=== PATIENT | female | born 1940 | race African-American/Black ===

== ENCOUNTER 2024-12-06 13:34 | Inpatient (IN) | payer OTHER ==
[2024-12-06 15:27] LABS: MCHC 32.5 g/dl (32.2-35.5); MEAN CELL VOLUME 73.4 fl (79.4-94.8); MEAN PLT VOLUME 10.2 fl (9.4-12.3); RDW 14.1 % (12.5-17.0)
[2024-12-06 15:30] LABS: EPI CELLS 17 /uL (0-25.1); HYALINE CASTS 1 /uL (0-3.1); URINE APPEARANCE CLEAR; URINE BACTERIA 374 /uL (0-1359); URINE BILIRUBIN NEGATIVE (NEGATIVE); URINE COLOR YELLOW; URINE GLUCOSE (UA) NEGATIVE (NEGATIVE); URINE KETONE NEGATIVE (NEGATIVE); URINE LEUK ESTERASE 1+ (NEGATIVE); URINE NITRITE NEGATIVE (NEGATIVE); URINE PROTEIN 1+ (NEGATIVE); URINE UROBILINOGEN 2.0 mg/dL (0.2-1.0); URINE WBC 136 /uL (0-25.8)
[2024-12-06 15:34] LABS: INR 1.19 (0.83-1.09); PROTHROMBIN TIME (PATIENT) 13.0 SEC (9.7-13.0)
[2024-12-06 15:36] LABS: ACTIVATED PTT 26.5 SECONDS (25.2-36.5)
[2024-12-06] MEDS ORDERED: ACETAMINOPHEN INJECTION 100 ML ONE (15:40)
[2024-12-06] MEDS ORDERED: PIPERACILLIN/TAZOB 3.375 GM 3.375 GM/50 ML BAG IVPB ONE (15:40)
[2024-12-06 15:53] LABS: GLUCOSE,RANDOM 102.0 mg/dL (74-106)
[2024-12-06] MEDS: PIPERACILLIN/TAZOB 3.375 GM 3.375 GM in DEXTROSE 5%-WATER - 50 ML IVPB ONE (15:53)
[2024-12-06] MEDS: ACETAMINOPHEN 1000 MG/100 ML BAG IVPB ONE (15:53)
[2024-12-06 15:54] LABS: TOT PROT 6.6 g/dl (6.4-8.2)
[2024-12-06 15:55] LABS: CO2 25.0 mmol/L (21-32)
[2024-12-06 15:56] LABS: ALK PHOS 76.0 U/L (40-150)
[2024-12-06 15:59] LABS: CREATININE 0.48 mg/dL (0.55-1.3); SGOT/AST 32.0 U/L (5-34); SGPT/ALT 21.0 U/L (0-55)
[2024-12-06 16:17] LABS: HIV INTERPRETATION NEGATIVE (NEGATIVE)
[2024-12-06 16:18] LABS: HCV DIAGNOSTIC IN-HOUSE W/RFLX NON-REACTIVE (NONREACTIVE)
[2024-12-06] MEDS ORDERED: VANCOMYCIN 1 GM PREMIX (F) 1 GM/200 ML BAG ONE (16:37)
[2024-12-06] MEDS: VANCOMYCIN 1,000 MG in DEXTROSE 5%-WATER - 250 ML IVPB ONE (16:49)
[2024-12-06 17:59] VITALS: BMI 23.6
[2024-12-06] MEDS: SENNOSIDES 8.6MG TABLET (FP) PO SCH (18:53)
[2024-12-06] MEDS ORDERED: PIPERACILLIN/TAZOB 3.375 GM 3.375 GM in DEXTROSE 5%-WATER - 50 ML IVPB SCH (21:00)
[2024-12-06] MEDS: PIPERACILLIN/TAZOB 3.375 GM 3.375 GM in DEXTROSE 5%-WATER - 50 ML IVPB SCH (21:10)
[2024-12-06] MEDS: HEPARIN NA (PORCINE) 5,000 UNITS/ML 1ML VIAL SQ SCH (21:11)
[2024-12-06] MEDS: CARBIDOPA/LEVODOPA 25/100 TABLET (FP) PO SCH (21:11)
[2024-12-06] MEDS: NYSTATIN POWDER 100,000 UNITS/GM - 15 GM TOPICAL POWDER TP SCH (22:00)
[2024-12-07] MEDS: ACETAMINOPHEN 1000 MG/100 ML BAG IVPB PRN ×2 (00:55→22:58)
[2024-12-07] MEDS: VANCOMYCIN/WATER FOR INJ (PEG) 1,000 MG/200 ML BAG IVPB SCH (04:00)
[2024-12-07 09:37] LABS: MCHC 31.7 g/dl (32.2-35.5); MEAN CELL VOLUME 74.1 fl (79.4-94.8); MEAN PLT VOLUME 10.6 fl (9.4-12.3); RDW 14.4 % (12.5-17.0)
[2024-12-07] MEDS: amLODIPine BESYLATE 10 MG TABLET (FP) PO SCH (10:04)
[2024-12-07] MEDS: LOSARTAN POTASSIUM 50 MG TABLET PO SCH (10:04)
[2024-12-07 11:14] LABS: GLUCOSE,RANDOM 92.0 mg/dL (74-106)
[2024-12-07 11:16] LABS: CO2 23.0 mmol/L (21-32)
[2024-12-07 11:20] LABS: CREATININE 0.55 mg/dL (0.55-1.3); IRON SERUM 31.0 ug/dL (50-175)
[2024-12-07] MEDS ORDERED: ONDANSETRON 4 MG/2 ML VIAL IVPUSH PRN ×2 (13:35→16:31)
[2024-12-07] MEDS ORDERED: MIDAZOLAM HCL 2 MG/2 ML SINGLE DOSE VIAL ONE (15:00)
[2024-12-07] MEDS ORDERED: PROPOFOL 20 ML ONE (15:00)
[2024-12-07] MEDS ORDERED: LIDOCAINE HCL 1%, 10 MG/ML (20ML VIAL) ONE (15:10)
[2024-12-07] MEDS ORDERED: KETOROLAC TROMETHAMINE 30 MG/1 ML VIAL ONE (15:10)
[2024-12-07] MEDS ORDERED: BUPIVACAINE HCL/PF 0.25% (2.5MG/ML) 10 ML VIAL ONE (15:11)
[2024-12-07] MEDS: BUPIVACAINE HCL/PF 0.25% (2.5MG/ML) 10 ML VIAL IJ ONE (15:15)
[2024-12-07] MEDS: LIDOCAINE HCL 1%, 10 MG/ML (20ML VIAL) NR ONE (15:15)
[2024-12-07] MEDS: LACTATED RINGERS SOLUTION 1,000 ML IV SCH ×2 (16:48→19:00)
[2024-12-07] MEDS: VANCOMYCIN 1,000 MG in DEXTROSE 5%-WATER - 250 ML IVPB SCH (16:48)
[2024-12-07] MEDS: PIPERACILLIN/TAZOB 3.375 GM 3.375 GM in DEXTROSE 5%-WATER - 50 ML IVPB SCH (17:56)
[2024-12-07] MEDS ORDERED: PIPERACILLIN/TAZOB 3.375 GM 3.375 GM in DEXTROSE 5%-WATER - 50 ML IVPB SCH (18:00)
[2024-12-07] MEDS: CARBIDOPA/LEVODOPA 25/100 TABLET (FP) PO SCH (21:18)
[2024-12-07] MEDS: HEPARIN NA (PORCINE) 5,000 UNITS/ML 1ML VIAL SQ SCH (21:18)
[2024-12-07] MEDS: NYSTATIN POWDER 100,000 UNITS/GM - 15 GM TOPICAL POWDER TP SCH (21:19)
[2024-12-08 08:46] LABS: ABSOLUTE IMMATURE GRANULOCYTES 0.12 x10^3/uL (0.0-0.031); BASOPHILS # 0.06 x10^3/uL (0.01-0.08); EOSINOPHIL % 1.7 % (0.7-5.8); EOSINOPHILS # 0.18 x10^3/uL (0.04-0.36); MCHC 31.5 g/dl (32.2-35.5); MEAN CELL VOLUME 73.9 fl (79.4-94.8); MEAN PLT VOLUME 10.4 fl (9.4-12.3); MONOCYTE # 0.77 x10^3/uL (0.24-0.86); MONOCYTE % 7.3 % (4.7-12.5); RDW 14.2 % (12.5-17.0)
[2024-12-08 09:03] LABS: GLUCOSE,RANDOM 78 mg/dL (74-106); TOT PROT 5.7 g/dl (6.4-8.2)
[2024-12-08 09:04] LABS: CO2 23 mmol/L (21-32)
[2024-12-08 09:06] LABS: ALK PHOS 60 U/L (40-150)
[2024-12-08 09:09] LABS: CREATININE 0.63 mg/dL (0.55-1.3); SGOT/AST 17 U/L (5-34); SGPT/ALT < 6 U/L (0-55)
[2024-12-08] MEDS: amLODIPine BESYLATE 10 MG TABLET (FP) PO SCH (09:58)
[2024-12-08] MEDS: LOSARTAN POTASSIUM 50 MG TABLET PO SCH (09:58)
[2024-12-08] MEDS: SENNOSIDES 8.6MG TABLET (FP) PO SCH (09:58)
[2024-12-08] MEDS ORDERED: POLYETHYLENE GLYCOL (HEALTHYLAX) 3350 17 GM PACKET PO PRN (12:28)
[2024-12-08] MEDS ORDERED: morphine CARPU-JECT 2 MG/1 ML DISP.SYRIN IVPUSH ONE (13:42)
[2024-12-08] MEDS: morphine CARPU-JECT 2 MG/1 ML DISP.SYRIN IVPUSH ONE (21:27)
[2024-12-09] MEDS ORDERED: ACETAMINOPHEN 325 MG TABLET (FP) PO PRN (08:47)
[2024-12-09 09:28] LABS: MCHC 32.3 g/dl (32.2-35.5); MEAN CELL VOLUME 73.3 fl (79.4-94.8); MEAN PLT VOLUME 10.1 fl (9.4-12.3); RDW 14.1 % (12.5-17.0)
[2024-12-09 10:14] LABS: GLUCOSE,RANDOM 91.0 mg/dL (74-106)
[2024-12-09 10:15] LABS: CO2 25.0 mmol/L (21-32)
[2024-12-09 10:19] LABS: CREATININE 0.49 mg/dL (0.55-1.3)
[2024-12-09 18:35] VITALS: RESP 18
[2024-12-10 09:59] VITALS: BP 128/71; PULSE 77; TEMP 98.6
[2024-12-10 11:35] LABS: MCHC 31.8 g/dl (32.2-35.5); MEAN CELL VOLUME 74.1 fl (79.4-94.8); MEAN PLT VOLUME 10.5 fl (9.4-12.3); RDW 14.5 % (12.5-17.0)
[2024-12-10 12:21] LABS: GLUCOSE,RANDOM 120.0 mg/dL (74-106)
[2024-12-10 12:22] LABS: CO2 23.0 mmol/L (21-32)
[2024-12-10 12:26] LABS: CREATININE 0.51 mg/dL (0.55-1.3)
== END 2024-12-10 16:47 | DRG 571 ==
LOC: JER 13:34 → JERBED 16:09 → J5S 17:25 → OBSVTOIN 12-07 09:20
PROVIDERS: ADMIT Student in an Organized Health Care Education/Training Program
PROC: 0JB70ZZ Excision of Back Subcutaneous Tissue and Fascia, Open Approach (ICD-10-PCS; principal; 2024-12-07 14:00)
DX: L89.150 Pressure ulcer of sacral region, unstageable (principal); L03.90 Cellulitis, unspecified; I10 Essential (primary) hypertension; D72.829 Elevated white blood cell count, unspecified; G20.A1 Parkinson's disease without dyskinesia, without mention of fluctuations; B96.20 Unspecified Escherichia coli [E. coli] as the cause of diseases classified elsewhere; B96.4 Proteus (mirabilis) (morganii) as the cause of diseases classified elsewhere; R52 Pain, unspecified
CPT/HCPCS: 36415; 80048; 80053; 81003; 82728; 83540; 83550; 83605; 83735; 84100; 84466; 85025; 85027; 85610; 85730; 86140; 86803; 87040; 87070; 87081; 87086; 87205; 87389; 88304-TC; 93005; 93010; 94760; 99285-25; G0378